=== PATIENT | male | born 1990 | race Caucasian/White ===

== ENCOUNTER 2016-08-13 03:37 | Observation (INO) | payer OTHER ==
[2016-08-13] MEDS ORDERED: Sodium Chloride 0.9% 1,000 ML IV STA (03:59)
--- NOTE | 2016-08-13 04:11 | ED PDOC ---
Arrival/HPI - General Historian: Patient <David Kang - Last Filed: 08/13/16 05:13> <Enrrique Pena - Last Filed: 08/13/16 05:24> - General Chief Complaint: GI Problem Time Seen by Provider: 08/13/16 03:52 - History of Present Illness Narrative History of Present Illness (Text): 08/13/16 04:06 This is a 26 yo M with no significant PMH that presents with lower abdominal pain, nausea and vomiting since 19:00 the night before. The pain is sharp in nature and has been fluctuating in intensity. He has vomited multiple times, food content, since his symptoms have started. He admits to feeling fever/ chills and diarrhea. Stools have been normal color. He denies any sick contact, new foods, chest pain, palpitations, sob or urinary symptoms. (David Kang) Past Medical History - Provider Review Nursing Documentation Reviewed: Yes - Psychiatric Hx Substance Use: No <David Kang - Last Filed: 08/13/16 05:13> Family/Social History - Physician Review Nursing Documentation Reviewed: Yes Family/Social History: No Known Family HX Smoking Status: Never Smoked Hx Alcohol Use: Yes Frequency of alcohol use: Few days per week Hx Substance Use: No <David Kang - Last Filed: 08/13/16 05:13> Allergies/Home Meds <David Kang - Last Filed: 08/13/16 05:13> <Enrrique Pena - Last Filed: 08/13/16 05:24> Allergies/Adverse Reactions: Allergies No Known Allergies Allergy (Verified 08/13/16 03:47) Home Medications: Home Meds Medication Instructions Recorded Confirmed No Known Home Med 08/13/16 08/13/16 Review of Systems - Physician Review All systems were reviewed & negative as marked: Yes - Review of Systems Constitutional: Fevers. absent: Fatigue Eyes: Normal. absent: Vision Changes, Eye Pain ENT: Normal Respiratory: Normal. absent: SOB, Cough Cardiovascular: Normal. absent: Chest Pain, Palpitations Gastrointestinal: Abdominal Pain, Diarrhea, Nausea, Vomiting. absent: Hematochezia, Hematemesis Genitourinary Male: Normal. absent: Dysuria, Frequency Musculoskeletal: Normal. absent: Arthralgias, Back Pain Skin: Normal. absent: Rash, Pruritis Neurological: Normal. absent: Headache, Dizziness Endocrine: Normal. absent: Diaphoresis Hemo/Lymphatic: Normal Psychiatric: Normal <David Kang - Last Filed: 08/13/16 05:13> Physical Exam Vital Signs Reviewed: Yes Temperature: Febrile Blood Pressure: Hypertensive Pulse: Regular Respiratory Rate: Normal Appearance: Positive for: Uncomfortable Pain Distress: Moderate Mental Status: Positive for: Alert and Oriented X 3 - Systems Exam Head: Present: Atraumatic, Normocephalic Pupils: Present: PERRL Extroacular Muscles: Present: EOMI Respiratory/Chest: Present: Clear to Auscultation, Good Air Exchange. No: Respiratory Distress Cardiovascular: Present: Regular Rate and Rhythm, Normal S1, S2 Abdomen: Present: Tenderness (RLQ), Normal Bowel Sounds. No: Distention Back: Present: Normal Inspection Upper Extremity: Present: NORMAL PULSES, Neurovascularly Intact Lower Extremity: Present: NORMAL PULSES, Neurovascularly Intact Neurological: Present: Speech Normal, Motor Func Grossly Intact Skin: Present: Warm, Dry Psychiatric: Present: Alert, Oriented x 3 <David Kang - Last Filed: 08/13/16 05:13> Medical Decision Making <David Kang - Last Filed: 08/13/16 05:13> <Enrrique Pena - Last Filed: 08/13/16 05:24> ED Course and Treatment: 08/13/16 04:15 26 yo M with RLQ pain and associated nausea and vomiting since last night Plan: - labs - CXR - CT abd/pelvis - toradol, zofran - IVF fluids - reassess and disposition 08/13/16 05:14 CT abd/pelvis FINDINGS: The appendix is well visualized and is enlarged, measuring 12 mm, upper limits normal 6 mm. There is wall thickening and subtle periappendiceal stranding. There is no pneumoperitoneum or abscess. There is no bowel obstruction. No acute solid organ pathology. IMPRESSION: Appendicitis as above. No perforation or abscess. Remainder as above. 08/13/16 05:14 Leukocytosis and elevated lactate. Started abx, getting fluids. Will admit. Discussed case with residential mortgage underwriter who will evaluate the pt as well. Discussed results with pt, agreeable to admission. (David Kang) 08/13/16 04:24 Patient seen and evaluated with resident. Agree with HPI, clinical findings, plan and treatment. Patient is a 26 year old male who presents to the emergency department complaining of RLQ abdominal pain associated with nausea and vomiting since last night. 08/13/16 05:21 CT abdomen pelvis shows appendicitis. Case discussed with Dr. Horner who is aware and accepts patient under service. vice president of manufacturing informed. (Enrrique Pena) - Lab Interpretations Lab Results: 08/13/16 04:07 08/13/16 04:07 Lab Results 08/13/16 04:07: pO2 40, VBG pH 7.39, VBG pCO2 42.0, VBG HCO3 25.4, VBG Total CO2 26.7, VBG O2 Sat (Calc) 77.4 H, VBG Base Excess 0.2, VBG Potassium 3.9, Sodium 136.0, Chloride 103.0, Glucose 146 H, Lactate 3.3 H, FiO2 21.0, Venous Blood Potassium 3.9 08/13/16 04:07: Sodium 138, Chloride 102, Potassium 4.0, Carbon Dioxide 23, Anion Gap 17, BUN 18, Creatinine 0.8, Est GFR ( Amer) > 60, Est GFR (Non- Af Amer) > 60, Random Glucose 132 H, Calcium 9.4, Total Bilirubin 0.6, AST 41, ALT 32, Alkaline Phosphatase 53, Total Protein 7.7, Albumin 4.5, Globulin 3.2, Albumin/Globulin Ratio 1.4, Lipase 227 08/13/16 04:07: WBC 12.5 H, RBC 4.70, Hgb 14.6, Hct 42.8, MCV 91.1, MCH 31.1, MCHC 34.1, RDW 12.3, Plt Count 245, MPV 9.1, Gran % 85.5 H, Lymph % (Auto) 8.4 L , [place] % (Auto) 5.4, Eos % (Auto) 0.5 L, Baso % (Auto) 0.2, Gran # 10.66 H, Lymph # 1.1 L, [place] # 0.7 H, Eos # 0.1, Baso # 0.02 - RAD Interpretation Radiology Orders: 08/13/16 03:57 CHEST PORTABLE [RAD] Stat 08/13/16 04:03 ABD & PELVIS W/O PO OR IV CONT [CT] Stat - Medication Orders Current Medication Orders: Metronidazole (Flagyl) 500 mg in 100 mls @ 100 mls/hr IVPB STAT STA PRN Reason: Protocol Stop: 08/13/16 05:56 Ceftriaxone Sodium (Rocephin 1 Gram Ivpb) 1 gm in 100 mls @ 200 mls/hr IVPB STAT STA PRN Reason: Protocol Stop: 08/13/16 05:26 Last Admin: 08/13/16 05:18 Dose: 200 mls/hr Discontinued Medications Sodium Chloride (Sodium Chloride 0.9%) 1,000 mls @ 999 mls/hr IV .Q1H1M STA Stop: 08/13/16 04:59 Last Admin: 08/13/16 04:33 Dose: 999 mls/hr Ketorolac Tromethamine (Toradol) 30 mg IVP STAT STA Stop: 08/13/16 04:00 Last Admin: 08/13/16 04:33 Dose: 30 mg Ondansetron HCl (Zofran Inj) 4 mg IVP STAT STA Stop: 08/13/16 04:00 Last Admin: 08/13/16 04:34 Dose: 4 mg <David Kang - Last Filed: 08/13/16 05:13> - PA / GENERAL SCIENCE TEACHER / Resident Statement / has reviewed & agrees with the documentation as recorded. / has examined the patient and agrees with the treatment plan. <Enrrique Pena - Last Filed: 08/13/16 05:24> - Scribe Statement An Hinds Provider Scribe Attestation: All medical record entries made by the Scribe were at my direction and personally dictated by me. I have reviewed the chart and agree that the record accurately reflects my personal performance of the history, physical exam, medical decision making, and the department course for this patient. I have also personally directed, reviewed, and agree with the discharge instructions and disposition. (Enrrique Pena) Disposition/Present on Arrival - Present on Arrival Any Indicators Present on Arrival: No History of DVT/PE: No History of Uncontrolled Diabetes: No Urinary Catheter: No History of Decub. Ulcer: No History Surgical Site Infection Following: None - Disposition Have Diagnosis and Disposition been Completed?: Yes Disposition Time: 05:20 Patient Plan: Admission <David Kang - Last Filed: 08/13/16 05:13> <Enrrique Pena - Last Filed: 08/13/16 05:24> - Disposition Diagnosis: Appendicitis Disposition: HOSPITALIZED Patient Problems: Current Active Problems Problem Status Onset Appendicitis Acute Condition: STABLE
[2016-08-13 04:28] LABS: ADD MANUAL DIFF? NO
[2016-08-13 04:43] LABS: BASO # 0.02 K/mm3 (0.0-2.0); BASO % 0.2 % (0.0-3.0); EOS # 0.1 (0.0-0.7); EOS % 0.5 % (1.5-5.0); GRAN # 10.66 (1.4-6.5); GRAN % 85.5 % (50.0-68.0); HEMATOCRIT 42.8 % (42.0-52.0); LYMPH # 1.1 (1.2-3.4); LYMPH % 8.4 % (22.0-35.0); MEAN CELL VOLUME 91.1 fL (80.0-105.0); MEAN CORPUSCULAR HEMOGLOBIN 31.1 pg (25.0-35.0); MEAN CORPUSCULAR HGB CONC 34.1 g/dl (31.0-37.0); MEAN PLATELET VOLUME 9.1 fl (7.0-11.0); MONO # 0.7 (0.1-0.6); MONO % 5.4 % (1.0-6.0); PLATELET COUNT 245 10^3/uL (120.0-450.0); RED CELL DISTRIBUTION WIDTH 12.3 % (11.5-14.5); WHITE BLOOD COUNT 12.5 10^3/ul (4.5-11.0)
[2016-08-13 04:53] LABS: VENOUS BLOOD GAS BASE EXCESS 0.2 mmol/L (0.0-2.0); VENOUS BLOOD PH 7.39 (7.32-7.43)
[2016-08-13] MEDS ORDERED: metroNIDAZOLE IV 500 mg/100 ml 500 MG/100 ML BAG IVPB STA (04:57)
[2016-08-13] MEDS ORDERED: cefTRIAXone 1 gm 1 GM/100 ML BAG IVPB STA (04:57)
[2016-08-13 05:06] LABS: ALB/GLOB RATIO 1.4 (1.1-1.8); ALKALINE PHOSPHATASE 53 U/L (38-133); ALT/SGPT 32 U/L (7-56); AST/SGOT 41 U/L (15-59); BILIRUBIN,TOTAL 0.6 mg/dL (0.2-1.3); BLOOD UREA NITROGEN 18 mg/dL (7-21); CALCIUM 9.4 mg/dL (8.4-10.5); CARBON DIOXIDE 23 mmol/L (21-33); CHLORIDE 102 mmol/L (98-107); GFR AFRICAN-AMERICAN > 60; GLUCOSE,RANDOM 132 mg/dL (70-110); LIPASE 227 U/L (23-300); SODIUM 138 mmol/L (132-148); TOTAL PROTEIN 7.7 g/dL (5.8-8.3)
--- NOTE | 2016-08-13 06:05 | CP.PCM.CON ---
History of Present Illness - History of Present Illness History of Present Illness: General Surgery Consult Re: appendicitis HPI: 26M presented to ED C/O abd pain that began last night around 7PM. Began as general abd pain but migrated to the RLQ. + nausea and NBNB emesis, F/C, diarrhea, headache. Temp in ED wass 100.5. Denies blood in stool, SOB, dysuria, hematuria. PMH: Denies PSH: mole removal SH: Occasional EtOH, no tobacco or drug use. Pt is a police dispatcher. All: NKDA Meds: Denies Review of Systems - Review of Systems All systems: reviewed and no additional remarkable complaints except (as per HPI ) Past Patient History - Past Social History Smoking Status: Never Smoked - PSYCHIATRIC Hx Substance Use: No - SURGICAL HISTORY Hx Surgeries: No Meds Allergies/Adverse Reactions: Allergies Allergy/AdvReac Type Severity Reaction Status Date / Time No Known Allergies Allergy Verified 08/13/16 03:47 Physical Exam - Constitutional Appears: Non-toxic, No Acute Distress - Head Exam Head Exam: ATRAUMATIC, NORMOCEPHALIC - Eye Exam Eye Exam: EOMI. absent: Scleral icterus - ENT Exam ENT Exam: Mucous Membranes Moist Additional comments: trachea midline - Neck Exam Neck exam: Positive for: Full Rom - Respiratory Exam Respiratory Exam: NORMAL BREATHING PATTERN. absent: Respiratory Distress - Cardiovascular Exam Cardiovascular Exam: RRR, +S1, +S2 - GI/Abdominal Exam GI & Abdominal Exam: Soft, Tenderness (mild in RLQ). absent: Distended, Firm, Guarding, Rebound, Rigid - Rectal Exam Rectal Exam: Deferred - Extremities Exam Extremities exam: Positive for: pedal pulses present. Negative for: calf tenderness, pedal edema - Back Exam Back exam: absent: CVA tenderness (L), CVA tenderness (R) - Neurological Exam Neurological exam: Alert, Oriented x3 - Psychiatric Exam Psychiatric exam: Normal Affect, Normal Mood - Skin Skin Exam: Dry, Warm Results - Vital Signs Recent Vital Signs: Last Vital Signs Temp 100.5 F H 08/13/16 03:47 Pulse 78 08/13/16 03:47 Resp 20 08/13/16 03:47 BP 153/93 H 08/13/16 03:47 Pulse Ox 100 08/13/16 03:47 - Labs Result Diagrams: 08/13/16 04:07 08/13/16 04:07 - Imaging and Cardiology CT scan - abdomen Status: Image reviewed by me, Report reviewed by me Assessment & Plan - Assessment and Plan (Free Text) Assessment: 26M with acute appendicitis Plan: NPO IVF Analgesia Zofran OR Today Will D/W Dr. Evens Marmolejo PGY3
[2016-08-13] MEDS ORDERED: Morphine 4 mg/ml ISec IVP PRN (06:14)
[2016-08-13 06:22] LABS: URINE BILIRUBIN NEGATIVE (NEGATIVE); URINE BLOOD NEGATIVE (NEGATIVE); URINE GLUCOSE (UA) NEGATIVE (NEGATIVE); URINE KETONE TRACE mg/dL (NEGATIVE); URINE LEUKOCYTE ESTERASE NEGATIVE Leu/uL (NEGATIVE); URINE PROTEIN NEGATIVE mg/dL (<30 mg/dL); URINE UROBILINOGEN 0.2 E.U./dL (<1 E.U./dL)
[2016-08-13 06:23] LABS: URINE APPEARANCE CLEAR (CLEAR); URINE COLOR YELLOW (YELLOW)
--- NOTE | 2016-08-13 08:42 | RAD ---
HISTORY: nausea and vomiting COMPARISON: No prior. FINDINGS: LUNGS: No active pulmonary disease. PLEURA: No significant pleural effusion identified, no pneumothorax apparent. CARDIOVASCULAR: Normal. OSSEOUS STRUCTURES: No significant abnormalities. VISUALIZED UPPER ABDOMEN: Normal. OTHER FINDINGS: None. IMPRESSION: No active disease.
[2016-08-13] MEDS: Sodium Chloride 0.9% 1,000 ML IV SCH (08:54)
--- NOTE | 2016-08-13 09:01 | CT ---
PROCEDURE: CT Abdomen and Pelvis without intravenous contrast HISTORY: RLQ pain, n/v COMPARISON: None. TECHNIQUE: Technique. Contrast Dose: Radiation dose: Total exam DLP = 604.98 mGy-cm. This CT exam was performed using one or more of the following dose reduction techniques: Automated exposure control, adjustment of the mA and/or kV according to patient size, and/or use of iterative reconstruction technique. FINDINGS: LOWER THORAX: There is bibasilar subsegmental atelectasis. LIVER: The liver is normal in size. No gross lesion or ductal dilatation. GALLBLADDER AND BILE DUCTS: No evidence of calcified gallstones. PANCREAS: The pancreas is normal in size. No gross lesion or ductal dilatation. SPLEEN: The spleen is normal in size. There is a nonspecific punctate calcification in the spleen. ADRENALS: Both adrenal glands are normal in size without discrete nodule. KIDNEYS AND URETERS: Both kidneys are normal in size without hydronephrosis or nephrolithiasis. VASCULATURE: No aortic aneurysm. BOWEL: The small bowel loops are normal in caliber. The colon is unremarkable. APPENDIX: There is distention of fluid-filled appendix which measures 9 mm in transverse diameter. There is mild wall thickening and surrounding inflammatory changes without evidence of perforation or fluid collection. PERITONEUM: No free fluid. No free air. LYMPH NODES: Enlarged mesenteric lymph nodes in the right lower quadrant, likely reactive. BLADDER: Grossly normal in appearance. REPRODUCTIVE: Unremarkable. BONES: No acute fracture. Within normal limits for the patient's age. OTHER FINDINGS: None. IMPRESSION: Acute appendicitis. No perforation or fluid collection. A preliminary report was provided by [facility]. .
[2016-08-13 09:04] LABS: VENOUS BLOOD GAS BASE EXCESS -1.2 mmol/L (0.0-2.0); VENOUS BLOOD PH 7.39 (7.32-7.43)
[2016-08-13 09:16] LABS: INR 1.06 (0.93-1.08); PARTIAL THROMBOPLASTIN TIME 29.6 Seconds (23.7-30.8)
[2016-08-13] MEDS ORDERED: Neostigmine Methylsulfate 3mg/3ml Syringe IV ONE (10:46)
[2016-08-13] MEDS ORDERED: Lidocaine 1% Inj (20ml) ONE (10:46)
[2016-08-13] MEDS ORDERED: Propofol 10 mg/ml Inj (20 ML) ONE (10:46)
[2016-08-13] MEDS ORDERED: Rocuronium 10 mg/ml (5 ml) ONE (10:47)
[2016-08-13] MEDS ORDERED: Succinylcholine 200 mg/10 ml Inj IV ONE (10:47)
[2016-08-13] MEDS ORDERED: metroNIDAZOLE IV 500 mg/100 ml 500 MG/100 ML BAG ONE (10:59)
[2016-08-13] MEDS ORDERED: cefTRIAXone (Rocephin) 1 gm Inj ONE (10:59)
[2016-08-13] MEDS ORDERED: Sevoflurane - Inhalation Anesthetic Liq (250 ml) ONE (11:15)
[2016-08-13] MEDS ORDERED: Lactated Ringer's 1,000 ML IV SCH (12:09)
[2016-08-13] MEDS ORDERED: HYDROmorphone 0.5 mg/0.5 ml ISec IVP PRN (12:09)
--- NOTE | 2016-08-13 12:11 | PCM.SURG1 ---
Surgeon's Initial Post Op Note - Surgeon's Notes Surgeon: Dr. Horner E Learning Designer: Dr. Del Toro Type of Anesthesia: General Endo Pre-Operative Diagnosis: acute appendicitis Operative Findings: inflammed appendix Post-Operative Diagnosis: acute appendicitis Operation Performed: laparoscopic appendectomy Specimen/Specimens Removed: appendix Estimated Blood Loss: EBL {In ML}: 5 Blood Products Given: N/A Drains Used: No Drains Post-Op Condition: Good Date of Surgery/Procedure: 08/13/16 Time of Surgery/Procedure: 12:11
[2016-08-13] MEDS: Morphine 4 mg/ml ISec IVP PRN ×2 (13:42→21:13)
[2016-08-13] MEDS: metroNIDAZOLE IV 500 mg/100 ml 500 MG/100 ML BAG IVPB SCH ×2 (13:51→21:17)
--- NOTE | 2016-08-13 17:33 | OP ---
PROCEDURE DATE: 08/13/2016 SURGEON: Dr. Horner. DIRECTOR OF FOOD AND NUTRITION SERVICES: Dr. Del Toro. ANESTHESIA: General, Dr. Peña. PREOPERATIVE DIAGNOSIS: Acute appendicitis. POSTOPERATIVE DIAGNOSIS: Acute appendicitis. PROCEDURE: Laparoscopic appendectomy. DESCRIPTION OF OPERATION: With the patient in the supine position under adequate general anesthesia, the abdomen was prepped and draped in the usual sterile manner. Veress needle puncture was performe d at the umbilicus with insufflation to 15 cm water pressure of CO2 and a 10 mm laparoscopic trocar w as inserted via an infraumbilical incision. Under direct vision, 5 and 12 mm trocars were inserted i n the left lower quadrant. The appendix was visualized in the iliac fossa and the appendix was grasp ed and elevated. It was hyperemic and dilated and appeared elongated and tortuous. The appendix was freed from retroperitoneal attachments to the pelvic side wall down to the junction with the cecum. The mesoappendix was dissected and then divided with an Endo PRIYA stapler. The appendix itself was t hen divided with the Endo PRIYA stapler. The area of the appendiceal artery was reinforced with Hemocl ips. The operative site was examined for hemostasis. The appendix was placed in a specimen retrieva l bag and removed via the 12 mm port site. The pneumoperitoneum was released and the trocars were re moved. The umbilical and 12 mm port sites were closed with fascial sutures of 0 Vicryl. All incisio ns were closed with 4-0 Monocryl subcuticular sutures and Dermabond. Dry sterile dressings were appl ied. The patient tolerated the procedure well and transferred to recovery room in stable condition. Estimated blood loss for the procedure was 5 mL. Ingrid Horner MD cc: [id number] TT: 08/13/2016 17:33:16 in
[2016-08-14] MEDS: metroNIDAZOLE IV 500 mg/100 ml 500 MG/100 ML BAG IVPB SCH (06:56)
[2016-08-14] MEDS: Sodium Chloride 0.9% 1,000 ML IV SCH (06:57)
[2016-08-14 08:24] LABS: ADD MANUAL DIFF? NO
[2016-08-14 08:31] LABS: BASO # 0.01 K/mm3 (0.0-2.0); BASO % 0.1 % (0.0-3.0); EOS # 0.1 (0.0-0.7); EOS % 1.7 % (1.5-5.0); GRAN # 4.09 (1.4-6.5); GRAN % 57.1 % (50.0-68.0); HEMATOCRIT 37.8 % (42.0-52.0); LYMPH # 2.5 (1.2-3.4); LYMPH % 34.4 % (22.0-35.0); MEAN CELL VOLUME 92.9 fL (80.0-105.0); MEAN CORPUSCULAR HEMOGLOBIN 30.5 pg (25.0-35.0); MEAN CORPUSCULAR HGB CONC 32.8 g/dl (31.0-37.0); MONO # 0.5 (0.1-0.6); MONO % 6.7 % (1.0-6.0); PLATELET COUNT 203 10^3/uL (120.0-450.0); RED CELL DISTRIBUTION WIDTH 12.6 % (11.5-14.5); WHITE BLOOD COUNT 7.2 10^3/ul (4.5-11.0)
[2016-08-14 09:19] VITALS: BP 112/71; PULSE 62; RESP 20; TEMP 98.8; O2SAT 98
[2016-08-14] MEDS ORDERED: cefTRIAXone 1 gm 1 GM/100 ML BAG IVPB SCH (10:00)
--- NOTE | 2016-08-14 13:06 | CP.PCM.DIS ---
Provider - Provider Date of Admission: 08/13/16 05:15 Attending physician: Ingrid Horner MD Primary care physician: Sonia Ulrich DO Time Spent in preparation of Discharge (in minutes): 20 Diagnosis - Discharge Diagnosis (1) Appendicitis Status: Resolved Priority: High Hospital Course - Lab Results Lab Results: Most Recent Lab Values WBC 7.2 10^3/ul (4.5-11.0) D 08/14/16 08:00 RBC 4.07 10^6/uL (3.5-6.1) 08/14/16 08:00 Hgb 12.4 gm/dL (14.0-18.0) L 08/14/16 08:00 Hct 37.8 % (42.0-52.0) L 08/14/16 08:00 MCV 92.9 fL (80.0-105.0) 08/14/16 08:00 MCH 30.5 pg (25.0-35.0) 08/14/16 08:00 MCHC 32.8 g/dl (31.0-37.0) 08/14/16 08:00 RDW 12.6 % (11.5-14.5) 08/14/16 08:00 Plt Count 203 10^3/uL (120.0-450.0) 08/14/16 08:00 MPV 9.0 fl (7.0-11.0) 08/14/16 08:00 Gran % 57.1 % (50.0-68.0) 08/14/16 08:00 Lymph % (Auto) 34.4 % (22.0-35.0) 08/14/16 08:00 [place] % (Auto) 6.7 % (1.0-6.0) H 08/14/16 08:00 Eos % (Auto) 1.7 % (1.5-5.0) 08/14/16 08:00 Baso % (Auto) 0.1 % (0.0-3.0) 08/14/16 08:00 Gran # 4.09 (1.4-6.5) 08/14/16 08:00 Lymph # 2.5 (1.2-3.4) 08/14/16 08:00 [place] # 0.5 (0.1-0.6) 08/14/16 08:00 Eos # 0.1 (0.0-0.7) 08/14/16 08:00 Baso # 0.01 K/mm3 (0.0-2.0) 08/14/16 08:00 PT 11.5 Seconds (9.9-11.8) 08/13/16 08:45 INR 1.06 (0.93-1.08) 08/13/16 08:45 APTT 29.6 Seconds (23.7-30.8) 08/13/16 08:45 pO2 96 mm/Hg (30-55) H 08/13/16 08:45 VBG pH 7.39 (7.32-7.43) 08/13/16 08:45 VBG pCO2 39.0 (40-60) L 08/13/16 08:45 VBG HCO3 23.6 mmol/l (21-28) 08/13/16 08:45 VBG Total CO2 24.8 mmol.L (22-28) 08/13/16 08:45 VBG O2 Sat (Calc) 97.8 % (40-65) H 08/13/16 08:45 VBG Base Excess -1.2 mmol/L (0.0-2.0) L 08/13/16 08:45 VBG Potassium 4.3 mmol/L (3.6-5.2) 08/13/16 08:45 Sodium 137.0 mmol/L (132-148) 08/13/16 08:45 Chloride 107.0 mmol/L (98-107) 08/13/16 08:45 Glucose 122 mg/dl (75-110) H 08/13/16 08:45 Lactate 1.8 mmol/L (0.7-2.1) 08/13/16 08:45 FiO2 21.0 % 08/13/16 08:45 Sodium 138 mmol/L (132-148) 08/13/16 04:07 Potassium 4.0 mmol/L (3.6-5.0) 08/13/16 04:07 Chloride 102 mmol/L (98-107) 08/13/16 04:07 Carbon Dioxide 23 mmol/L (21-33) 08/13/16 04:07 Anion Gap 17 (10-20) 08/13/16 04:07 BUN 18 mg/dL (7-21) 08/13/16 04:07 Creatinine 0.8 mg/dL (0.5-1.4) 08/13/16 04:07 Est GFR ( Amer) > 60 08/13/16 04:07 Est GFR (Non-Af Amer) > 60 08/13/16 04:07 Random Glucose 132 mg/dL (70-110) H 08/13/16 04:07 Calcium 9.4 mg/dL (8.4-10.5) 08/13/16 04:07 Total Bilirubin 0.6 mg/dL (0.2-1.3) 08/13/16 04:07 AST 41 U/L (15-59) 08/13/16 04:07 ALT 32 U/L (7-56) 08/13/16 04:07 Alkaline Phosphatase 53 U/L (38-133) 08/13/16 04:07 Total Protein 7.7 g/dL (5.8-8.3) 08/13/16 04:07 Albumin 4.5 g/dL (3.0-4.8) 08/13/16 04:07 Globulin 3.2 gm/dL 08/13/16 04:07 Albumin/Globulin Ratio 1.4 (1.1-1.8) 08/13/16 04:07 Lipase 227 U/L (23-300) 08/13/16 04:07 Venous Blood Potassium 4.3 mmol/L (3.6-5.2) 08/13/16 08:45 Urine Color Yellow (YELLOW) 08/13/16 06:00 Urine Appearance Clear (CLEAR) 08/13/16 06:00 Urine pH 7.0 (4.7-8.0) 08/13/16 06:00 Ur Specific [place] 1.015 (1.005-1.035) 08/13/16 06:00 Urine Protein Negative mg/dL (<30 mg/dL) 08/13/16 06:00 Urine Glucose (UA) Negative mg/dL (NEGATIVE) 08/13/16 06:00 Urine Ketones Trace mg/dL (NEGATIVE) H 08/13/16 06:00 Urine Blood Negative (NEGATIVE) 08/13/16 06:00 Urine Nitrate Negative (NEGATIVE) 08/13/16 06:00 Urine Bilirubin Negative (NEGATIVE) 08/13/16 06:00 Urine Urobilinogen 0.2 E.U./dL (<1 E.U./dL) 08/13/16 06:00 Ur Leukocyte Esterase Negative [place]/uL (NEGATIVE) 08/13/16 06:00 - Hospital Course Hospital Course: 26M presented to ED and was found to have acute appendicitis. He was taken to the OR fpr a lap appy and did well afterwards. He was able to be D/Mark on POD#1. Discharge Exam - Head Exam Head Exam: ATRAUMATIC, NORMOCEPHALIC - Eye Exam Eye Exam: EOMI. absent: Scleral icterus - Respiratory Exam Respiratory Exam: NORMAL BREATHING PATTERN. absent: Respiratory Distress - Cardiovascular Exam Cardiovascular Exam: RRR, +S1, +S2 - GI/Abdominal Exam GI & Abdominal Exam: Guarding (mild), Soft, Tenderness (at incision sites). absent: Distended, Firm, Rigid - Neurological Exam Neurological exam: Alert, Oriented x3 - Skin Skin Exam: Dry, Warm Discharge Plan - Follow Up Plan Condition: STABLE Disposition: HOME/ ROUTINE Instructions: Ibuprofen (By mouth), Appendicitis (DC), Laparoscopic Appendectomy (DC) Additional Instructions: Take Ibuprofen 600mg Q4hr prn pain. F/U w/ Dr. Horner in 1-2 weeks. Call office to make an appointment. Can shower, do not bathe or soak incisions. No lifting > 10lbs for 2 weeks. Return instructions verbally discussed with patient. Referrals: Sonia Ulrich DO [Primary Care Provider] -
== END 2016-08-14 14:20 | disposition home or self-care (01) ==
LOC: ED 03:37 → INTOOBSV 05:15 → ERH 05:15 → 3RSO 06:37
PROVIDERS: ADMIT Specialist; ATTEND Specialist
DX: K35.80 Unspecified acute appendicitis (principal)
CPT/HCPCS: 36415; 44970; 71010; 74176; 80053; 81003; 82803; 83690; 85025; 85610; 85730; 87040; 88304; 96361; 96365; 96375; 99285; G0378; J0330; J0696; J1885; J2270; J2405; J2704; J2710; J3010; J7040; J7120